=== PATIENT | female | born 1960 | race Caucasian/White ===

== ENCOUNTER 2022-09-07 08:21 | Inpatient (IN) ==
[2022-09-07] MEDS ORDERED: SODIUM CHLORIDE 0.9% 500 ML IV STA (09:04)
[2022-09-07] MEDS ORDERED: ONDANSETRON INJ 2 MG/ML 2 ML VIAL IV STA (09:06)
[2022-09-07] MEDS ORDERED: NITROGLYCERIN 2% OINTMENT 30GM TUBE EXT STA (09:09)
[2022-09-07] MEDS ORDERED: ASPIRIN CHEW 324 MG PO STA (09:09)
[2022-09-07 09:26] LABS: Basophils # (auto) 0.03 K/uL (0-0.2); Basophils % (auto) 0.5 %; Eosinophils # (auto) 0.06 K/uL (0-0.50); Hematocrit (blood only) 46.1 % (37.0-47.0); Hemoglobin 15.8 g/dl (12.0-16.0); Immature Granulocytes # (auto) 0.04 K/uL (0.01-0.20); Immature Granulocytes % (auto) 0.7 %; Lymphocytes # (auto) 0.62 K/uL (1.2-3.4); Lymphocytes % (auto) 10.5 %; Mean Corpuscular Hemoglobin 29.6 pg (25.0-34.0); Mean Corpuscular Hgb Conc 34.3 g/dL (32.0-36.0); Mean Corpuscular Volume 86.3 fL (80.0-100.0); Mean Platelet Volume 9.7 fL (9.4-12.4); Monocytes # (auto) 0.26 K/uL (0.11-0.59); Monocytes % (auto) 4.4 %; Neutrophils # (auto) 4.89 K/uL (1.40-6.50); Neutrophils % (auto) 82.9 %; Platelet Count 289 K/uL (130-400); RDW Standard Deviation 40.5 fL (36.4-46.3); Red Blood Count 5.34 M/uL (4.20-5.40)
--- NOTE | 2022-09-07 09:29 | Emergency Department Note ---
Impression & Plan Near syncope, Abnormal ECG, Nausea, Indigestion, Elevated troponin ED Provider Note INFORMANT: Patient ED PROVIDER(S): Preet Wagner MD CHIEF COMPLAINT: Near syncope PLAN: Disposition: Admitted Condition: Good Outpatient prescription management: none Referral: none MEDICAL DECISION MAKING: Patient presented emergency department because of feeling lightheaded. Her preh ospital ECG was concerning as there was some ST depression. It was improved in the ED ECG. The patient had a work-up performed. She had an unremarkable CBC and chemistry panel except for mild hypokalemia. This was treated. The patient was hydrated. She did have frequent PVCs on cardiac monitoring. Patient's D- dimer is negative. Patient's troponin unfortunately came back elevated and this was concerning for possible cardiac source. Patient was moderately hypertensive. She was treated with aspirin and nitro. She still had mild tachycardia noted and was given dose of IV Lopressor. Further management in the hospital will be necessary. Consultation was made with the [facility] list service. I discussed the case with Viridiana mckay BARK TANNER. Patient was evaluated in the ED by the team and will be admitted under Dr. Ramirez. After review of the information above and other included data, I feel the patient requires admission.. Triage Nursing notes reviewed and agree them. Vital Signs: reviewed and remarkable for hypertension and mild tachycardia Prior /Outside records reviewed: none Differential diagnosis: Vasovagal event, dehydration, infection, hypoglycemia, electrolyte abnormalities, cardiac sources, intracerebral event, pulmonary embolism, se izure, toxicologic, neurologic, as well as other pathologies. Diagnostics, as interpreted by me: ECG: Twelve-lead ECG reveals sinus tachycardia [address] abnor mality. When compared to prehospital ECG today anterior and inferior ST abnormality has replaced ST depression. Cardiac Monitoring: Cardiac monitoring ordered by me: The patient was placed on continuous cardiac monitoring and observed. It revealed a sinus tachycardic rhythm at 113 bpm with frequent PVCs. Medical decision rules: none Imaging studies: Chest x-ray. Findings: A chest x-ray was performed and revealed no pneumothorax, effusion, infiltrate, pulmonary edema, free air under the diaphragm, or wide mediastinum. Impression: No acute disease. HPI: The patient is a 62year old female who presents to the Emergency Room with complaints of near syncope. This started this morning while driving to work and is intermittent. The patient also notes the following associated symptoms, palpitations, indigestion, nausea. The patient has been given no medication fo r relieving factors. Current pain is rated as 0/10. Patient states that she felt like she was lightheaded and might pass out. She has had waves of this. She noted indigestion and some nausea. No issues over the weekend. Patient does drive a lot for work. Denies any calf pain or swelling. Pt denies LOC, headache, fevers, chills, diaphoresis, visual changes, neck pain, chest pain, breathing difficulties, vomiting, abdominal pain, back pain, melena, hematochezia, urinary symptoms, numbness, weakness, or other complaints. PAST MEDICAL HISTORY: See Below, UTI, hypertension PAST SURGICAL HISTORY: See Below, SOCIAL HISTORY: See Below, HOME MEDICATIONS: See Below ALLERGIES: See Below VITALS: See Below PHYSICAL EXAMINATION: GENERAL: Awake, alert, mildly anxious-appearing, in no distress HENT: Normocephalic, atraumatic. Oropharynx unremarkable. EYES: Normal conjunctiva. Sclera non-icteric. NECK: Inspection normal. Non-tender. Supple. No nuchal rigidity. FROM. No masses. RESPIRATORY: Clear to auscultation. No wheezes. No rales. Normal respiratory effort. CARDIAC: Borderline tachycardic rate. Normal rhythm but occasional PVCs. No murmurs. No rubs. Extremities warm and well perfused. Pulses equal. No JVD. GI: Soft, non-distended. No tenderness to palpation. No rebound or guarding. No masses. RECTAL: Deferred. MUSCULOSKELETAL: Atraumatic. Chest examination reveals no tenderness. The back is symmetrical on inspection without obvious abnormality. There is no CVA tenderness to palpation. No joint edema. LOWER EXTREMITIES: Calves are equal size bilaterally and non-tender. No edema. No discoloration. NEURO: Normal sensorium. No sensory or motor deficits noted. SKIN: No rash or jaundice noted. Past Med/Surg History Medical History GERD (gastroesophageal reflux disease) HTN (hypertension) Hypothyroidism Multiple kidney stones PUD (peptic ulcer disease) Surgical History H/O foot surgery H/O tubal ligation H/O: hysterectomy History of cystoscopy [place] teeth removed Family History Son Hypertension Bilateral kidney stones Cancer colon Mother Hypertension Cancer ovarian, colon Grandmother (Maternal) Hypertension Aunt Bilateral kidney stones Cancer colon Uncle Cancer bladder Social History Smoking Status: Never smoker Hx Alcohol Use: Yes Alcohol type: wine Hx Substance Use: No Preferred Language: [place] Technical Business Systems Analyst Required: No Beliefs That Will Affect Care: Baptism marital status: Current Living Situation: Spouse current occupational status: employed Other Information That Helps Us Care for You: No Feels Safe at Home: Yes Safety Concerns: Feels Safe At This Time Assistive Devices: Glasses Allergies Allergies Allergy/AdvReac Type Severity Reaction Status Date / Time codeine Allergy Unknown "muscle Verified 04/12/19 11:58 pain" morphine Allergy Unknown "muscle Verified 04/12/19 11:58 pain" Sulfa (Sulfonamide Allergy Unknown HIVES Verified 04/12/19 11:58 Antibiotics) hydrocodone Allergy itchy Verified 04/12/19 11:58 throat & skin gluten AdvReac Gastrointestinal Verified 09/07/22 12:37 Upset hydrochlorothiazide AdvReac Confusion Verified 09/07/22 12:36 Home Meds Home Medications Medication Instructions Recorded Confirmed amlodipine 5 mg tablet 5 mg PO DAILY 04/12/19 09/07/22 famotidine 10 mg tablet (Acid 10 mg PO HS 04/12/19 09/07/22 [employer] Plant Construction Worker (famotidine)) levothyroxine 25 mcg tablet 25 mcg PO DAILY 04/12/19 09/07/22 (Synthroid) losartan 25 mg tablet 25 mg PO DAILY 04/12/19 09/07/22 vitamin B complex (B 1 tab PO DAILY 04/12/19 09/07/22 Complex-Vitamin B12 tablet) cholecalciferol (vit D3) 1,000 2 tab PO DAILY 09/07/22 09/07/22 unit-vitamin K2 (MK4) 100 mcg tablet lactobacillus comb no.10 20 20,000 mmu cells PO DAILY 09/07/22 09/07/22 billion cell capsule (Probiotic) turmeric root extract 500 mg tablet 500 mg PO DAILY 09/07/22 09/07/22 Results & Data (ED) Vital Signs Vital Signs - 24 hr 09/07/22 08:30 09/07/22 09:04 09/07/22 08:33 Temperature 37.1 C Temperature Source Oral Pulse Rate 114 H 108 H Pulse Rate [Apical] Respiratory Rate 21 23 Respiratory Effort / Characteristics Non-Labored Respiratory Depth Normal Respiratory Pattern Regular Blood Pressure 158/104 H Blood Pressure [Left Arm] Blood Pressure Mean 122 Blood Pressure Mean [Left Arm] Blood Pressure Position Semi-fowlers Pulse Oximetry 97 97 Oxygen Delivery Method Room Air Room Air Sepsis Recent Fever Within 48 Hours No Sepsis New/Unexplained Change in Mental Status N/A Sepsis Action Taken by Nursing No Action Required 09/07/22 09:00 09/07/22 09:00 09/07/22 09:09 Temperature Temperature Source Pulse Rate 115 H 110 H Pulse Rate [Apical] Respiratory Rate 21 19 Respiratory Effort / Characteristics Respiratory Depth Respiratory Pattern Blood Pressure 143/102 H Blood Pressure [Left Arm] Blood Pressure Mean 115 Blood Pressure Mean [Left Arm] Blood Pressure Position Pulse Oximetry Oxygen Delivery Method Sepsis Recent Fever Within 48 Hours Sepsis New/Unexplained Change in Mental Status Sepsis Action Taken by Nursing 09/07/22 09:09 09/07/22 09:57 09/07/22 10:00 Temperature Temperature Source Pulse Rate 112 H Pulse Rate [Apical] Respiratory Rate 15 Respiratory Effort / Characteristics Respiratory Depth Respiratory Pattern Blood Pressure 179/112 H 137/100 Blood Pressure [Left Arm] Blood Pressure Mean 134 112 Blood Pressure Mean [Left Arm] Blood Pressure Position Pulse Oximetry Oxygen Delivery Method Sepsis Recent Fever Within 48 Hours Sepsis New/Unexplained Change in Mental Status Sepsis Action Taken by Nursing 09/07/22 10:00 09/07/22 11:00 09/07/22 11:30 Temperature Temperature Source Pulse Rate 119 H Pulse Rate [Apical] 102 H 85 Respiratory Rate 16 21 18 Respiratory Effort / Characteristics Respiratory Depth Respiratory Pattern Blood Pressure Blood Pressure [Left Arm] 152/87 H 113/79 Blood Pressure Mean Blood Pressure Mean [Left Arm] 108 90 Blood Pressure Position Pulse Oximetry 96 Oxygen Delivery Method Room Air Room Air Sepsis Recent Fever Within 48 Hours Sepsis New/Unexplained Change in Mental Status Sepsis Action Taken by Nursing Laboratory Data 09/07/22 08:50 09/07/22 08:50 Lab Results 09/07/22 09/07/22 09/07/22 Range/Units 08:50 08:50 08:50 WBC 5.90 (4.8-10.8) K/ul RBC 5.34 (4.20-5.40) M/uL Hgb 15.8 (12.0-16.0) g/dl Hct 46.1 (37.0-47.0) % MCV 86.3 (80.0-100.0) fL MCH 29.6 (25.0-34.0) pg MCHC 34.3 (32.0-36.0) g/dL RDW Std Deviation 40.5 (36.4-46.3) fL RDW Coeff of Shawna 13.0 (11.5-14.5) % Plt Count 289 (130-400) K/uL MPV 9.7 (9.4-12.4) fL Immature Gran % (Auto) 0.7 % Neut % (Auto) 82.9 % Lymph % (Auto) 10.5 % [place] % (Auto) 4.4 % Eos % (Auto) 1.0 % Baso % (Auto) 0.5 % Neut # (Auto) 4.89 (1.40-6.50) K/uL Lymph # (Auto) 0.62 L (1.2-3.4) K/uL [place] # (Auto) 0.26 (0.11-0.59) K/uL Eos # (Auto) 0.06 (0-0.50) K/uL Baso # (Auto) 0.03 (0-0.2) K/uL Immature Gran # (Auto) 0.04 (0.01-0.20) K/uL D-Dimer 230 (0-500) ug/L FEU Sodium 140 (136-145) mmol/L Potassium 3.1 L (3.5-5.1) mmol/L Chloride 103 (98-107) mmol/L Carbon Dioxide 26 (21-32) mmol/L Anion Gap 11 (3-11) BUN 19 (6-23) mg/dl Creatinine 1.00 (0.6-1.2) mg/dl Est Cr Clr Drug Dosing 63.0 ml/min Est GFR ( Amer) 69.4 ml/min Est GFR (Non-Af Amer) 59.9 ml/min BUN/Creatinine Ratio 19.0 (10-20) Glucose 148 H (70-99(Fasting)) mg/dl Calcium 10.1 (8.5-10.1) mg/dl Magnesium 1.9 (1.7-2.4) mg/dl Total Bilirubin 1.2 H (0.2-1.0) mg/dl AST 20 (13-39) U/L ALT 17 (7-52) U/L Alkaline Phosphatase 89 (34-104) U/L Troponin I High Sens 25.5 H (0-14) pg/ml Total Protein 7.9 (6.0-8.3) gm/dl Albumin 4.7 (3.4-5.0) gm/dl Globulin 3.2 (2.5-4.0) gm/dl Albumin/Globulin Ratio 1.5 (0.9-2) TSH (0.300-4.500) uIu/ml Urine Color Urine Appearance (Clear) Urine pH (4.5-7.5) Ur Specific [place] (1.000-1.030) Urine Protein (Negative) Urine Glucose (UA) (Negative) Urine Ketones (Negative) Urine Blood (Negative) Urine Nitrite (Negative) Urine Bilirubin (Negative) Urine Urobilinogen (Negative) Ur Leukocyte Esterase (Negative) Urine WBC (Auto) (0-5) /hpf Urine RBC (Auto) (0-4) /hpf U Hyaline Cast (Auto) (0-5) /lpf U Epithel Cells (Auto) (0-5) /lpf Urine Bacteria (Auto) (Negative) Lyme Disease IgG Ab (Negative) Lyme Disease IgM Ab (Negative) SARS-CoV-2, RNA, NAAT (NEGATIVE) 09/07/22 09/07/22 09/07/22 Range/Units 08:50 08:50 08:50 WBC (4.8-10.8) K/ul RBC (4.20-5.40) M/uL Hgb (12.0-16.0) g/dl Hct (37.0-47.0) % MCV (80.0-100.0) fL MCH (25.0-34.0) pg MCHC (32.0-36.0) g/dL RDW Std Deviation (36.4-46.3) fL RDW Coeff of Shawna (11.5-14.5) % Plt Count (130-400) K/uL MPV (9.4-12.4) fL Immature Gran % (Auto) % Neut % (Auto) % Lymph % (Auto) % [place] % (Auto) % Eos % (Auto) % Baso % (Auto) % Neut # (Auto) (1.40-6.50) K/uL Lymph # (Auto) (1.2-3.4) K/uL [place] # (Auto) (0.11-0.59) K/uL Eos # (Auto) (0-0.50) K/uL Baso # (Auto) (0-0.2) K/uL Immature Gran # (Auto) (0.01-0.20) K/uL D-Dimer (0-500) ug/L FEU Sodium (136-145) mmol/L Potassium (3.5-5.1) mmol/L Chloride (98-107) mmol/L Carbon Dioxide (21-32) mmol/L Anion Gap (3-11) BUN (6-23) mg/dl Creatinine (0.6-1.2) mg/dl Est Cr Clr Drug Dosing ml/min Est GFR ( Amer) ml/min Est GFR (Non-Af Amer) ml/min BUN/Creatinine Ratio (10-20) Glucose (70-99(Fasting)) mg/dl Calcium (8.5-10.1) mg/dl Magnesium (1.7-2.4) mg/dl Total Bilirubin (0.2-1.0) mg/dl AST (13-39) U/L ALT (7-52) U/L Alkaline Phosphatase (34-104) U/L Troponin I High Sens (0-14) pg/ml Total Protein (6.0-8.3) gm/dl Albumin (3.4-5.0) gm/dl Globulin (2.5-4.0) gm/dl Albumin/Globulin Ratio (0.9-2) TSH 2.883 (0.300-4.500) uIu/ml Urine Color Yellow Urine Appearance Clear (Clear) Urine pH 8.0 H (4.5-7.5) Ur Specific [place] 1.008 (1.000-1.030) Urine Protein Trace H (Negative) Urine Glucose (UA) Negative (Negative) Urine Ketones Negative (Negative) Urine Blood 1+ H (Negative) Urine Nitrite Negative (Negative) Urine Bilirubin Negative (Negative) Urine Urobilinogen Negative (Negative) Ur Leukocyte Esterase Negative (Negative) Urine WBC (Auto) 1-5 (0-5) /hpf Urine RBC (Auto) 5-10 H (0-4) /hpf U Hyaline Cast (Auto) 1-5 (0-5) /lpf U Epithel Cells (Auto) 0-5 (0-5) /lpf Urine Bacteria (Auto) Negative (Negative) Lyme Disease IgG Ab Negative (Negative) Lyme Disease IgM Ab Negative (Negative) SARS-CoV-2, RNA, NAAT (NEGATIVE) 09/07/22 Range/Units 09:20 WBC (4.8-10.8) K/ul RBC (4.20-5.40) M/uL Hgb (12.0-16.0) g/dl Hct (37.0-47.0) % MCV (80.0-100.0) fL MCH (25.0-34.0) pg MCHC (32.0-36.0) g/dL RDW Std Deviation (36.4-46.3) fL RDW Coeff of Shawna (11.5-14.5) % Plt Count (130-400) K/uL MPV (9.4-12.4) fL Immature Gran % (Auto) % Neut % (Auto) % Lymph % (Auto) % [place] % (Auto) % Eos % (Auto) % Baso % (Auto) % Neut # (Auto) (1.40-6.50) K/uL Lymph # (Auto) (1.2-3.4) K/uL [place] # (Auto) (0.11-0.59) K/uL Eos # (Auto) (0-0.50) K/uL Baso # (Auto) (0-0.2) K/uL Immature Gran # (Auto) (0.01-0.20) K/uL D-Dimer (0-500) ug/L FEU Sodium (136-145) mmol/L Potassium (3.5-5.1) mmol/L Chloride (98-107) mmol/L Carbon Dioxide (21-32) mmol/L Anion Gap (3-11) BUN (6-23) mg/dl Creatinine (0.6-1.2) mg/dl Est Cr Clr Drug Dosing ml/min Est GFR ( Amer) ml/min Est GFR (Non-Af Amer) ml/min BUN/Creatinine Ratio (10-20) Glucose (70-99(Fasting)) mg/dl Calcium (8.5-10.1) mg/dl Magnesium (1.7-2.4) mg/dl Total Bilirubin (0.2-1.0) mg/dl AST (13-39) U/L ALT (7-52) U/L Alkaline Phosphatase (34-104) U/L Troponin I High Sens (0-14) pg/ml Total Protein (6.0-8.3) gm/dl Albumin (3.4-5.0) gm/dl Globulin (2.5-4.0) gm/dl Albumin/Globulin Ratio (0.9-2) TSH (0.300-4.500) uIu/ml Urine Color Urine Appearance (Clear) Urine pH (4.5-7.5) Ur Specific [place] (1.000-1.030) Urine Protein (Negative) Urine Glucose (UA) (Negative) Urine Ketones (Negative) Urine Blood (Negative) Urine Nitrite (Negative) Urine Bilirubin (Negative) Urine Urobilinogen (Negative) Ur Leukocyte Esterase (Negative) Urine WBC (Auto) (0-5) /hpf Urine RBC (Auto) (0-4) /hpf U Hyaline Cast (Auto) (0-5) /lpf U Epithel Cells (Auto) (0-5) /lpf Urine Bacteria (Auto) (Negative) Lyme Disease IgG Ab (Negative) Lyme Disease IgM Ab (Negative) SARS-CoV-2, RNA, NAAT NEGATIVE (NEGATIVE) Administered Medications Heparin Sodium/Dextrose (Heparin Sodium/Dextrose) 25,000 units in 500 mls @ 25 mls/hr IV .Q20H [facility]; Protocol Stop: 10/07/22 13:59 Last Admin: 09/07/22 14:07 Dose: 1,250 units/hr, 25 mls/hr Documented By: CECILE Co-signed By: MARY Metoprolol Tartrate (Metoprolol Tartrate 25 Mg Tab) 12.5 mg PO BID [facility] Stop: 10/07/22 13:24 Last Admin: 09/07/22 13:40 Dose: 12.5 mg Documented By: CECILE Discontinued Medications Aspirin (Aspirin Chew 324 Mg) 324 mg PO NOW STA Stop: 09/07/22 09:10 Last Admin: 09/07/22 09:35 Dose: 324 mg Documented By: CALOS Heparin Sodium (Porcine) (Heparin Sod (Porcine) 1000 Unit/Ml) 6,000 units IV NOW ONE Stop: 09/07/22 13:55 Last Admin: 09/07/22 14:05 Dose: 6,000 units Documented By: CECILE Co-signed By: MARY Sodium Chloride (Nss) 500 mls @ 999 mls/hr IV .Q31M STA Stop: 09/07/22 09:34 Last Infusion: 09/07/22 09:35 Dose: 0 mls/hr Documented By: Admin: 09/07/22 09:00 Dose: 999 mls/hr Documented By: CALOS Metoprolol Tartrate (Metoprolol Tartrate 1 Mg/Ml Vial) 5 mg IV NOW STA Stop: 09/07/22 11:03 Last Admin: 09/07/22 11:11 Dose: 5 mg Documented By: CECILE Nitroglycerin (Nitroglycerin 2% Ointment 30gm Tube) 0.5 inch EXT NOW STA Stop: 09/07/22 09:10 Last Admin: 09/07/22 09:35 Dose: 0.5 inch Documented By: CALOS Ondansetron HCl (Ondansetron Inj 2 Mg/Ml 2 Ml Vial) 4 mg IV NOW STA Stop: 09/07/22 09:07 Last Admin: 09/07/22 09:34 Dose: 4 mg Documented By: CALOS Potassium Chloride (Potassium Chloride Crtab 20 Meq Tabcr) 20 meq PO NOW STA Stop: 09/07/22 09:55 Last Admin: 09/07/22 10:41 Dose: 20 meq Documented By: CALOS Potassium Chloride (Potassium Chloride Crtab 20 Meq Tabcr) 20 meq PO NOW STA Stop: 09/07/22 12:37 Last Admin: 09/07/22 12:46 Dose: 20 meq Documented By: CALOS Imaging Data Radiologist's Impression: Chest X-Ray 09/07/22 09:04 XR chest 1V portable HISTORY: 62 years-old Female near syncope acute chest trauma COMPARISON: 03/15/2019 TECHNIQUE: AP view of the chest FINDINGS: Cardiomediastinal and hilar silhouettes are within normal limits. No pneumothorax, pleural effusion, airspace consolidation or overt pulmonary edema. Bones appear grossly intact. IMPRESSION: No acute process. ACT 112: Negative or not required by law. The above report was generated using voice recognition software. It may contain grammatical, syntax or spelling errors. Electronically signed by: Hank Solorio M.D. 09/07/2022 9:39 AM Discharge Plan Visit Data Chief Complaint: Syncope (Near Syncope) Stated Complaint: NEAR SYNCOPE, DIZZINESS ED Provider: Preet Wagner Discharge Problem: Near syncope, Abnormal ECG, Nausea, Indigestion, Elevated troponin Discharge Instructions Interventions: ED Discharge Assessment Last Done: 09/07/22 14:34
[2022-09-07 09:32] LABS: Appearance Urine Clear (Clear); Bacteria Urine Automated Negative (Negative); Bilirubin Urine Negative (Negative); Blood Urine 1+ (Negative); Color Urine Yellow; Epithelial Cell Urine Auto 0-5 /lpf (0-5); Glucose Urine UA Negative (Negative); Ketones Urine Negative (Negative); Leukocyte Esterase Urine Negative (Negative); Nitrite Urine Negative (Negative); Specific Gravity Urine 1.008 (1.000-1.030); Urobilinogen Urine Negative (Negative)
[2022-09-07 09:35] LABS: Protein Urine Trace (Negative)
[2022-09-07 09:40] LABS: D Dimer 230 ug/L FEU (0-500)
[2022-09-07 09:41] LABS: Albumin Level 4.7 gm/dl (3.4-5.0); Bilirubin,Total 1.2 mg/dl (0.2-1.0); Calcium 10.1 mg/dl (8.5-10.1); Magnesium 1.9 mg/dl (1.7-2.4); Potassium 3.1 mmol/L (3.5-5.1)
--- NOTE | 2022-09-07 09:42 | XRay Report ---
XR chest 1V portable HISTORY: 62 years-old Female near syncope acute chest trauma COMPARISON: 03/15/2019 TECHNIQUE: AP view of the chest FINDINGS: Cardiomediastinal and hilar silhouettes are within normal limits. No pneumothorax, pleural effusion, airspace consolidation or overt pulmonary edema. Bones appear grossly intact. IMPRESSION: No acute process. ACT 112: Negative or not required by law. The above report was generated using voice recognition software. It may contain grammatical, syntax o r spelling errors. Electronically signed by: Hank Solorio M.D. 09/07/2022 9:39 AM
[2022-09-07 09:47] LABS: Albumin Globulin Ratio 1.5 (0.9-2); Est GFR (African American) 69.4 ml/min; Est GFR (Non-African American) 59.9 ml/min; Globulin 3.2 gm/dl (2.5-4.0); Total Protein 7.9 gm/dl (6.0-8.3)
[2022-09-07] MEDS ORDERED: POTASSIUM CHLORIDE CRTAB 20 MEQ TABCR PO STA ×2 (09:54→12:36)
[2022-09-07 09:58] LABS: Lyme Ab IgG w/WB Rflx Negative (Negative); Lyme Ab IgM w/WB Rflx Negative (Negative)
--- NOTE | 2022-09-07 10:09 | Electrocardiogram Report ---
Test Reason : Blood Pressure : / mmHG Vent. Rate : 107 BPM Atrial Rate : 107 BPM P-R Int : 158 ms QRS Dur : 084 ms QT Int : 346 ms P-R-T Axes : 052 -12 024 degrees QTc Int : 461 ms Sinus tachycardia Nonspecific ST abnormality Abnormal ECG No previous ECGs available Confirmed by Amish Worrell ([id number]) on 09/07/2022 10:09:04 AM Referred By: REFERRED SELF Confirmed By:Amish Worrell
[2022-09-07 10:13] LABS: Troponin I High Sensitivity 25.5 pg/ml (0-14)
[2022-09-07] MEDS ORDERED: METOPROLOL TARTRATE 1 MG/ML VIAL IV STA (11:02)
--- NOTE | 2022-09-07 12:40 | History & Physical Report ---
Date of Service September 07, 2022 Assessment & Plan (1) Near syncope: (2) Abnormal ECG: Plan: Admit to telemetry Patient presenting today after a near syncopal event with associated indigestion and nausea. Episode occurred while driving. Prehospital EKG showed ST d epressions in leads II, aVF, V3 through V5. EKG in ED similar with less pronounced ST depressions. Frequent PVCs noted on ED telemetry. Initial HS trop 25. K+ 3.1 Replace potassium Trend troponin S/p metoprolol 5 mg IV in the ED, continue with metoprolol tartrate 12.5 mg PO BID Resting echo Cardiology consult (3) HTN (hypertension): Plan: BP controlled, continue amlodipine and losartan. Adding metoprolol as above (4) Hypothyroidism: Plan: TSH WNL Continue with levothyroxine (5) GERD (gastroesophageal reflux disease): Plan: Continue H2 meghana DVT PROPHYLAXIS SCDs I spent a total of 60 minutes coordinating, documenting, and providing care for this patient excluding time spent in the performance of separately billed services. This included personally reviewing all current laboratories and imaging studies, medication reconciliation, outpatient chart review, and discussion with specialists. History of Present Illness Chief Complaint: Near Syncope Primary Care Provider: Cleopatra Luu MD 62 year old female with PMH HTN, GERD, PUD, hypothyroidism, renal calculi, and other problems listed below who presents to the ED for evaluation of near syncope. Patient reports that while driving this morning she had onset of indigestion and lightheadedness. Patient reports she pulled over and took a dose of Maalox. She reports that she then continued down the road for about 1 mile when symptoms returned. Patient reports she felt as though she was going to pass out. She was able to call 911. Patient reports associated nausea and palpitations. Patient denies diaphoresis and chest pain. Patient does report she gets episodes of indigestion with associated lightheadedness almost daily however today's episode was much different. Patient reports undergoing stress testing about 10 years ago. Patient is unsure of the indication. Patient states that test was stopped due to elevated BP however patient denies any additional work-up. Patient reports he otherwise has been feeling well recently. No other recent illnesses, fevers, chills. She denies vomiting, abdominal pain, diarrhea. No urinary symptoms. Prehospital EKG showed sinus tachycardia with ST depressions in leads II aVF, V3-V5. Upon arrival to the ED, patient was tachycardic in the 110's. Labs show K+ 3.1, HS troponin 25.5. EKG is similar to prehospital however ST depressions less pronounced. Patient was given full dose aspirin, metoprolol 5 mg IV, 0.5in Nitropaste, IV Zofran, potassium replacement, IVF. Allergies Allergy/AdvReac Type Severity Reaction Status Date / Time codeine Allergy Unknown "muscle Verified 04/12/19 11:58 pain" morphine Allergy Unknown "muscle Verified 04/12/19 11:58 pain" Sulfa (Sulfonamide Allergy Unknown HIVES Verified 04/12/19 11:58 Antibiotics) hydrocodone Allergy itchy Verified 04/12/19 11:58 throat & skin gluten AdvReac Gastrointestinal Verified 09/07/22 12:37 Upset hydrochlorothiazide AdvReac Confusion Verified 09/07/22 12:36 Home Medications Medication Instructions Recorded Confirmed Type amlodipine 5 mg tablet 5 mg PO DAILY 04/12/19 09/07/22 History famotidine 10 mg tablet (Acid 10 mg PO HS 04/12/19 09/07/22 History Rehabilitator (famotidine)) levothyroxine 25 mcg tablet 25 mcg PO DAILY 04/12/19 09/07/22 History (Synthroid) losartan 25 mg tablet 25 mg PO DAILY 04/12/19 09/07/22 History vitamin B complex (B 1 tab PO DAILY 04/12/19 09/07/22 History Complex-Vitamin B12 tablet) cholecalciferol (vit D3) 1,000 2 tab PO DAILY 09/07/22 09/07/22 History unit-vitamin K2 (MK4) 100 mcg tablet lactobacillus comb no.10 20 20,000 mmu cells PO DAILY 09/07/22 09/07/22 History billion cell capsule (Probiotic) turmeric root extract 500 mg tablet 500 mg PO DAILY 09/07/22 09/07/22 History Past Med/Surg History Medical History GERD (gastroesophageal reflux disease) HTN (hypertension) Hypothyroidism Multiple kidney stones PUD (peptic ulcer disease) Surgical History H/O foot surgery H/O tubal ligation H/O: hysterectomy History of cystoscopy [place] teeth removed Family History Son Hypertension Bilateral kidney stones Cancer colon Mother Hypertension Cancer ovarian, colon Grandmother (Maternal) Hypertension Aunt Bilateral kidney stones Cancer colon Uncle Cancer bladder Social History Smoking Status: Never smoker Hx Alcohol Use: Yes Alcohol type: wine Hx Substance Use: No Preferred Language: Irish Customer Engineer Required: No Beliefs That Will Affect Care: Denominational marital status: Current Living Situation: Spouse current occupational status: employed Other Information That Helps Us Care for You: No Feels Safe at Home: Yes Safety Concerns: Feels Safe At This Time Assistive Devices: Glasses Review of Systems Review of Systems: ROS per HPI, all other systems reviewed and negative Physical Exam Constitutional: WD/WN, vitals as above Eyes: PERRL, conjunctivae normal, anicteric sclerae ENMT: external ear and nose normal, oropharynx normal Respiratory: normal respiratory effort, lungs clear to auscultation Cardiovascular: Rate/Rhythm: regular rate and regular rhythm Vessels: normal peripheral pulses Extremities: no edema Gastrointestinal (Abdomen): normal bowel sounds, soft, nontender, no hepatosplenomegaly Musculoskeletal: no cyanosis or clubbing, extremities motor strength 5/5 Skin: no rashes, warm and dry Neurologic: PERRL, EOMI, accommodation nl, no face palsy, no dysarthria Psychiatric: A+Ox3, euthymic affect Results & Data Results & Data ([facility]) Vital Signs (Past 12 Hours) Vital Signs Temp Pulse Pulse Resp BP BP Pulse Ox 09/07/22 12:30 87 15 97 09/07/22 12:30 130/84 09/07/22 12:00 87 17 97 09/07/22 12:00 140/82 09/07/22 11:30 85 18 113/79 96 09/07/22 11:00 102 H 21 152/87 H 09/07/22 10:00 119 H 16 09/07/22 10:00 137/100 09/07/22 09:57 112 H 15 09/07/22 09:09 179/112 H 09/07/22 09:09 110 H 19 09/07/22 09:00 115 H 21 01/30/23 09:00 143/102 H 09/07/22 08:33 108 H 23 09/07/22 09:04 97 09/07/22 08:30 37.1 C 114 H 21 158/104 H 97 O2 Del Method 09/07/22 12:30 Room Air 09/07/22 12:30 09/07/22 12:00 Room Air 09/07/22 12:00 09/07/22 11:30 Room Air 09/07/22 11:00 Room Air 09/07/22 10:00 09/07/22 10:00 09/07/22 09:57 09/07/22 09:09 09/07/22 09:09 09/07/22 09:00 09/07/22 09:00 09/07/22 08:33 09/07/22 09:04 Room Air 09/07/22 08:30 Room Air Laboratory Results Short CBC 09/07/22 Range/Units 08:50 WBC 5.90 (4.8-10.8) K/ul Hgb 15.8 (12.0-16.0) g/dl Hct 46.1 (37.0-47.0) % Plt Count 289 (130-400) K/uL BMP 09/07/22 08:50 Sodium 140 Potassium 3.1 L Chloride 103 Carbon Dioxide 26 BUN 19 Creatinine 1.00 Glucose 148 H Calcium 10.1 Liver Function 09/07/22 Range/Units 08:50 Total Bilirubin 1.2 H (0.2-1.0) mg/dl AST 20 (13-39) U/L ALT 17 (7-52) U/L Alkaline Phosphatase 89 (34-104) U/L Albumin 4.7 (3.4-5.0) gm/dl Urine 09/07/22 Range/Units 08:50 Urine Color Yellow Urine Appearance Clear (Clear) Urine pH 8.0 H (4.5-7.5) Ur Specific [place] 1.008 (1.000-1.030) Urine Protein Trace H (Negative) Urine Glucose (UA) Negative (Negative) Diagnostic Findings Chest X-Ray 09/07/22 09:04 XR chest 1V portable HISTORY: 62 years-old Female near syncope acute chest trauma COMPARISON: 03/15/2019 TECHNIQUE: AP view of the chest FINDINGS: Cardiomediastinal and hilar silhouettes are within normal limits. No pneumothorax, pleural effusion, airspace consolidation or overt pulmonary edema. Bones appear grossly intact. IMPRESSION: No acute process. ACT 112: Negative or not required by law. The above report was generated using voice recognition software. It may contain grammatical, syntax or spelling errors. Electronically signed by: Hank Solorio M.D. 09/07/2022 9:39 AM Supervising Physician Co-Signing Physician Notes Patient was seen and evaluated in ER room A11B. Chart reviewed. Case discussed with BECK. Second troponin increasing, discussed with Cardiology, will start heparin drip. Keep NPO past midnight. Likely cath tomorrow. Remaining assessment and plan as above.
--- NOTE | 2022-09-07 12:45 | Cardiology Consultation ---
Date of Consultation September 07, 2022 Assessment & Plan (1) Abnormal ECG: (2) Near syncope: (3) Elevated troponin: (4) PVCs (premature ventricular contractions): (5) HTN (hypertension): Plan 62-year-old female presenting to the emergency department via EMS today due to an episode of near syncope while driving. Symptoms were accompanied by palpitations, dyspepsia, and numbness and tingling in her upper extremities. EKG sinus rhythm with a nonspecific repolarization abnormality. Telemetry showing sinus rhythm/sinus tach with PVCs. Patient had significant improvement in symptoms since receiving Lopressor. -Patient symptomatic with PVCs. Responded well to IV Lopressor. Start metoprolol tartrate 12.5 mg twice daily. Continue to monitor on telemetry while inpatient. -Hypokalemia noted on BMP. Replace potassium to a goal of 4.0 High-sensitivity troponin elevated at 25>>65. -Obtain resting echocardiogram to assess LV systolic function and for any new wall motion abnormalities. We will also be able to take a look at valvular status at this time. Order already placed by primary team. Results pending. -Start ASA 81 mg daily -Start Heparin gtt -NPO at midnight for possible heart cath tomorrow morning. History of hypertension. Blood pressures controlled. -Continue home blood pressure medicines of losartan and amlodipine. Case discussed with Dr. Hendrix. We will follow. Supervising Physician Co-Signing Physician Notes Supervising Physician Attestation: I have personally performed a history and physical examination on the patient. I agree with the physician electrician's assistant's findings and plan as documented with the following additions. Subjective: Patient describes driving to work today and feeling symptoms typical of what she calls her chronic "heartburn". She pulled over and took some Maalox. She started driving again and shortly thereafter felt ongoing heartburn as well as arm numbness, lightheadedness, and felt like she might pass out. She pulled over and called 911. Exam: Cardiovascular: Regular rhythm, no murmurs, no edema Data: Initial twelve-lead EKG performed at 807 by the paramedics revealed sinus tachycardia at 120 bpm with [address] segment depression noted in the inferior leads, most pronounced in lead II, I, and to a lesser degree in the lateral precordial leads. This was less prominent on a repeat tracing performed 10 minutes later 8:17 AM. By the time she arrived and had a standard twelve- lead EKG performed in the emergency department only mild nonspecific repolarization changes were noted. Laboratory studies notable for potassium of 3.1, initial HS troponin 25.5, and has trended up to 64.2. A bedside echocardiogram was performed with images interpreted independently by the undersigned revealing normal biventricular wall motion and systolic function, LVEF in the range of 60-65 percent. Trace mitral regurgitation noted. Assessment and Plan: At the time my assessment the patient was asymptomatic, subjective symptoms actually improved after receiving IV metoprolol and oral metoprolol. -Question if her gastrointestinal symptoms today are an anginal equivalent. -Based on the EKG and troponin values, will likely plan for coronary angiography tomorrow 09/08/2022. -Continue medical therapy including aspirin, metoprolol tartrate 12.5 mg twice daily, UF heparin. -Bilirubin minimally elevated at 1.2, transaminases normal. Start atorvastatin 20 mg daily. -Advance diet now, n.p.o. after midnight, further testing planned tomorrow. DVT prophylaxis: She is on full anticoagulation dose heparin infusion. Taiwo Hendrix, History of Present Illness Reason for Consultation: Near syncope, abnormal EKG, elevated troponin Requesting Physician: Shamika mcfarland History of Present Illness 62-year-old female who presented to the [facility] emergency department due to symptoms of presyncope while driving this morning. This morning when she was driving to work she started to develop dyspepsia/GERD- like symptoms which are not uncommon for her. States that she has a "nodule" at the bottom of her esophagus and takes anti-reflux medications often. When she pulled over to take some Maalox she started to feel extremely lightheaded. Symptoms progressed and she started to feel numbness and tingling in her hands. She developed tunnel vision which is what prompted her to call 911. She denies any loss of consciousness. Since coming to the ED she has been feeling a lot of palpitations/skipped heart beats. She was given 5 mg IV Lopressor, ASA 325 mg, and Topical Nitro with relief in her symptoms. Notes that a similar occurrence happened around - but was not nearly as intense. Tele: Initially ST with PVCs 100s, now SR with PVCs in the 80s. EKG: Sinus tachycardia, [address] abnormality. Labs: CBC unremarkable, renal function stable, hypokalemia- 3.1, high- sensitivity troponin- 25.5 Chest x-ray unremarkable Echo pending Upon entrance into the room patient resting in bed. Daughter at beside. Denies chest pain. No further GI discomfort/nausea, lightheadedness, or presyncope. Will continue to have palpitations- but improved. Appetite good. No personal history of [place], CVA, rheumatic fever. Patient is new to the [facility] practice. She follows with a care team in [place]. Family History: Mother: [place] following colon cancer/ovarian cancer surgery, in her 60s Father: unknown Brother: Uncontrolled HTN, cerebral aneurysm- Son: ? [place] at age 25, HFrEF, 2 year ago due to colon cancer Past medical history: Hypertension GERD Peptic ulcer disease Hypothyroidism Renal calculi Allergies Allergy/AdvReac Type Severity Reaction Status Date / Time codeine Allergy Unknown "muscle Verified 04/12/19 11:58 pain" morphine Allergy Unknown "muscle Verified 04/12/19 11:58 pain" Sulfa (Sulfonamide Allergy Unknown HIVES Verified 04/12/19 11:58 Antibiotics) hydrocodone Allergy itchy Verified 04/12/19 11:58 throat & skin gluten AdvReac Gastrointestinal Verified 09/07/22 12:37 Upset hydrochlorothiazide AdvReac Confusion Verified 09/07/22 12:36 Home Medications Medication Instructions Recorded Confirmed Type amlodipine 5 mg tablet 5 mg PO DAILY 04/12/19 09/07/22 History famotidine 10 mg tablet (Acid 10 mg PO HS 04/12/19 09/07/22 History Academic Assistant (famotidine)) levothyroxine 25 mcg tablet 25 mcg PO DAILY 04/12/19 09/07/22 History (Synthroid) losartan 25 mg tablet 25 mg PO DAILY 04/12/19 09/07/22 History vitamin B complex (B 1 tab PO DAILY 04/12/19 09/07/22 History Complex-Vitamin B12 tablet) cholecalciferol (vit D3) 1,000 2 tab PO DAILY 09/07/22 09/07/22 History unit-vitamin K2 (MK4) 100 mcg tablet lactobacillus comb no.10 20 20,000 mmu cells PO DAILY 09/07/22 09/07/22 History billion cell capsule (Probiotic) turmeric root extract 500 mg tablet 500 mg PO DAILY 09/07/22 09/07/22 History Patient History Medical History GERD (gastroesophageal reflux disease) HTN (hypertension) Hypothyroidism Multiple kidney stones PUD (peptic ulcer disease) Surgical History H/O foot surgery H/O tubal ligation H/O: hysterectomy History of cystoscopy [place] teeth removed Family History Son Hypertension Bilateral kidney stones Cancer colon Mother Hypertension Cancer ovarian, colon Grandmother (Maternal) Hypertension Aunt Bilateral kidney stones Cancer colon Uncle Cancer bladder Social History Smoking Status: Never smoker Hx Alcohol Use: Yes Alcohol type: wine Hx Substance Use: No Preferred Language: Haitian Operator Catalyst Concentration Required: No Beliefs That Will Affect Care: Hindu marital status: Current Living Situation: Spouse current occupational status: employed Other Information That Helps Us Care for You: No Feels Safe at Home: Yes Safety Concerns: Feels Safe At This Time Assistive Devices: Glasses Review of Systems Review of Systems: All systems reviewed & are unremarkable except as noted in HPI & below Physical Exam Physical Exam: Temp Pulse Resp BP Pulse Ox O2 Del Method 37.1 C 80 13 136/82 95 09/07/22 08:30 09/07/22 14:30 09/07/22 14:30 09/07/22 14:30 09/07/22 14:30 09/07/22 14:30 Constitutional: WD/WN, vitals as above no acute distress Eyes: PERRL, conjunctivae normal, anicteric sclerae Neck: normal visual inspection and trachea midline Respiratory: normal respiratory effort, lungs clear to auscultation Cardiovascular: RRR, no murmur, no edema Heart Sounds: normal S1 and normal S2 Vessels: no JVD Extremities: no edema Gastrointestinal (Abdomen): normal bowel sounds, soft, nontender, no hepatosplenomegaly Musculoskeletal: no cyanosis or clubbing, extremities motor strength 5/5 Skin: no rashes, warm and dry Psychiatric: A+Ox3, euthymic affect Results & Data ([facility]) Laboratory Results Cardiac Enzymes 09/07/22 Range/Units 08:50 AST 20 (13-39) U/L Troponin I High Sens 25.5 H (0-14) pg/ml CBC 09/07/22 Range/Units 08:50 WBC 5.90 (4.8-10.8) K/ul RBC 5.34 (4.20-5.40) M/uL Hgb 15.8 (12.0-16.0) g/dl Hct 46.1 (37.0-47.0) % Plt Count 289 (130-400) K/uL Neut # (Auto) 4.89 (1.40-6.50) K/uL Lymph # (Auto) 0.62 L (1.2-3.4) K/uL [place] # (Auto) 0.26 (0.11-0.59) K/uL Eos # (Auto) 0.06 (0-0.50) K/uL Baso # (Auto) 0.03 (0-0.2) K/uL Comprehensive Metabolic Panel 09/07/22 Range/Units 08:50 Sodium 140 (136-145) mmol/L Potassium 3.1 L (3.5-5.1) mmol/L Chloride 103 (98-107) mmol/L Carbon Dioxide 26 (21-32) mmol/L BUN 19 (6-23) mg/dl Creatinine 1.00 (0.6-1.2) mg/dl Glucose 148 H (70-99(Fasting)) mg/dl Calcium 10.1 (8.5-10.1) mg/dl AST 20 (13-39) U/L ALT 17 (7-52) U/L Alkaline Phosphatase 89 (34-104) U/L Total Protein 7.9 (6.0-8.3) gm/dl Albumin 4.7 (3.4-5.0) gm/dl
[2022-09-07] MEDS: METOPROLOL TARTRATE 25 MG TAB PO SCH ×2 (13:40→21:16)
[2022-09-07] MEDS ORDERED: Heparin IV Adult Wt-Based Standard WITH Bolus Protocol IV SCH (13:45)
[2022-09-07] MEDS ORDERED: HEPARIN SOD (PORCINE) 1000 UNIT/ML IV ONE (13:54)
[2022-09-07] MEDS ORDERED: HEPARIN SODIUM/DEXTROSE 25,000 UNITS/500 ML BAG IV SCH (14:00)
[2022-09-07] MEDS ORDERED: ACETAMINOPHEN 325 MG TAB PO PRN (14:34)
[2022-09-07] MEDS ORDERED: METOPROLOL TARTRATE 25 MG TAB PO SCH (14:34)
[2022-09-07] MEDS: ATORVASTATIN 20 MG TAB PO SCH (18:02)
[2022-09-07 20:04] LABS: Partial Thromboplastin Ratio 2.7
[2022-09-07 20:12] LABS: Partial Thromboplastin Time 72.9 Seconds (21.0-31.0)
[2022-09-07] MEDS ORDERED: FAMOTIDINE 10 MG TABLET PO SCH (21:00)
[2022-09-08 03:25] LABS: Hematocrit (blood only) 38.9 % (37.0-47.0); Hemoglobin 13.3 g/dl (12.0-16.0); Mean Corpuscular Hemoglobin 29.7 pg (25.0-34.0); Mean Corpuscular Hgb Conc 34.2 g/dL (32.0-36.0); Mean Corpuscular Volume 86.8 fL (80.0-100.0); Mean Platelet Volume 9.4 fL (9.4-12.4); Platelet Count 268 K/uL (130-400); RDW Coefficient of Variation 13.2 % (11.5-14.5); RDW Standard Deviation 41.1 fL (36.4-46.3); Red Blood Count 4.48 M/uL (4.20-5.40); White Blood Count 6.85 K/ul (4.8-10.8)
[2022-09-08 03:44] LABS: BUN Creatinine Ratio 20.4 (10-20); Calcium 8.9 mg/dl (8.5-10.1); Creatinine Clr Calc Pharmacy 67.7 ml/min; Est GFR (African American) 75.8 ml/min; Est GFR (Non-African American) 65.4 ml/min; Potassium 3.8 mmol/L (3.5-5.1)
[2022-09-08 04:10] LABS: Partial Thromboplastin Ratio 2.7
[2022-09-08 04:20] LABS: Partial Thromboplastin Time 74.6 Seconds (21.0-31.0)
[2022-09-08] MEDS: LEVOTHYROXINE SODIUM 25 MCG TABLET PO SCH (06:07)
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
[2022-09-08] MEDS: ASPIRIN 81 MG ECTAB PO SCH (08:34)
[2022-09-08] MEDS: amLODIPine BESYLATE 5 MG TAB PO SCH (08:34)
[2022-09-08] MEDS: ATORVASTATIN 20 MG TAB PO SCH (08:34)
[2022-09-08] MEDS ORDERED: METOPROLOL TARTRATE 25 MG TAB PO SCH (09:00)
[2022-09-08] MEDS ORDERED: LOSARTAN POTASSIUM 25 MG TAB PO SCH (09:00)
[2022-09-08] MEDS ORDERED: MIDAZOLAM HCL 1 MG/ML 2ML VIAL ONE ×2 (09:22→10:35)
[2022-09-08] MEDS ORDERED: niCARdipine HCL INJ 2.5 MG/ML 10 ML AMP ONE (09:22)
[2022-09-08] MEDS ORDERED: fentaNYL citrate 100 MCG/2 ML VIAL ONE (09:22)
[2022-09-08] MEDS ORDERED: NITROGLYCERIN/D5W 100MCG/ML 20ML SYR ONE (09:22)
[2022-09-08] MEDS ORDERED: HEPARIN (PORCINE) 1000 UNIT/ML 10 ML (CATH LAB USE ONLY) ONE (09:22)
--- NOTE | 2022-09-08 09:57 | Pre Anesthesia Assessment ---
Date of Service September 08, 2022 Pre Sedation Assessment Vital Signs Temp Pulse Pulse Resp BP BP BP 09/08/22 09:25 69 16 161/93 H 09/08/22 03:00 97.8 F 76 15 138/87 09/07/22 23:32 57 L 09/07/22 23:00 98.4 F 63 14 108/62 09/07/22 20:00 98.4 F 71 12 116/73 09/07/22 15:57 84 23 09/07/22 15:50 144/97 H 09/07/22 15:50 84 29 H 09/07/22 15:45 135/81 09/07/22 15:35 89 24 09/07/22 15:30 85 17 09/07/22 15:30 125/74 09/07/22 15:49 89 09/07/22 15:03 09/07/22 15:03 80 18 119/81 09/07/22 14:30 80 13 09/07/22 14:30 136/82 09/07/22 14:02 90 20 09/07/22 14:01 132/94 09/07/22 13:56 94 H 09/07/22 13:30 82 15 09/07/22 13:30 136/99 09/07/22 13:00 86 20 09/07/22 13:00 133/89 09/07/22 12:30 87 15 09/07/22 12:30 130/84 09/07/22 12:00 87 17 09/07/22 12:00 140/82 09/07/22 11:30 85 18 113/79 09/07/22 11:00 102 H 21 152/87 H 09/07/22 10:00 119 H 16 09/07/22 10:00 137/100 09/07/22 09:57 112 H 15 Pulse Ox O2 Del Method O2 Del Method 09/08/22 09:25 96 Room Air 09/08/22 03:00 97 Room Air 09/07/22 23:32 09/07/22 23:00 97 Room Air 09/07/22 20:00 98 Room Air 09/07/22 15:57 98 09/07/22 15:50 09/07/22 15:50 98 09/07/22 15:45 09/07/22 15:35 09/07/22 15:30 09/07/22 15:30 09/07/22 15:49 09/07/22 15:03 Room Air 09/07/22 15:03 98 Room Air 09/07/22 14:30 95 Room Air 09/07/22 14:30 09/07/22 14:02 97 Room Air 09/07/22 14:01 09/07/22 13:56 97 Room Air 09/07/22 13:30 96 Room Air 09/07/22 13:30 09/07/22 13:00 95 09/07/22 13:00 09/07/22 12:30 97 Room Air 09/07/22 12:30 09/07/22 12:00 97 Room Air 09/07/22 12:00 09/07/22 11:30 96 Room Air 09/07/22 11:00 Room Air 09/07/22 10:00 09/07/22 10:00 09/07/22 09:57 Cardiovascular RRR, no murmur, no edema Respiratory normal respiratory effort, lungs clear to auscultation Pre-Sedation Airway Assessment Smoking Status: Never smoker Hx Sleep Apnea: No Hx Difficult Intubation: No Short, Thick Neck: No Thyromental Distance: > or= 3.5 Finger Breadths Oral Cavity: + WNL Mallampati Class: II ASA: ASA2 Procedure Planning Contraindications for Sedation: none Current Medications Reviewed: Yes Notes The planned sedation has been discussed with the patient. Informed Consent was obtained. I have identified the patient, determined the appropriateness of sedation and have assessed the patient immediately prior to the procedure. All medicine(s) and interventions are by my order.
[2022-09-08] MEDS ORDERED: CLOPIDOGREL BISULFATE 300 MG TAB ONE (10:36)
--- NOTE | 2022-09-08 11:04 | Communication Note ---
Date of Service: September 08, 2022 Given use of DAPT with PUD will start patient on Protonix 40 mg daily This can be started following her cardiac cath. -Patient with past intolerance to Protonix. We will continue Pepcid.
--- NOTE | 2022-09-08 11:08 | Post Anesthesia Assessment ---
Date of Service September 08, 2022 Post Sedation Assessment Vital Signs Temp Pulse Pulse Resp BP BP BP 09/08/22 11:00 69 16 118/77 09/08/22 09:25 69 16 161/93 H 09/08/22 03:00 97.8 F 76 15 138/87 09/07/22 23:32 57 L 09/07/22 23:00 98.4 F 63 14 108/62 09/07/22 20:00 98.4 F 71 12 116/73 09/07/22 15:57 84 23 09/07/22 15:50 144/97 H 09/07/22 15:50 84 29 H 09/07/22 15:45 135/81 09/07/22 15:35 89 24 09/07/22 15:30 85 17 09/07/22 15:30 125/74 09/07/22 15:49 89 09/07/22 15:03 09/07/22 15:03 80 18 119/81 09/07/22 14:30 80 13 09/07/22 14:30 136/82 09/07/22 14:02 90 20 09/07/22 14:01 132/94 09/07/22 13:56 94 H 09/07/22 13:30 82 15 09/07/22 13:30 136/99 09/07/22 13:00 86 20 09/07/22 13:00 133/89 09/07/22 12:30 87 15 09/07/22 12:30 130/84 09/07/22 12:00 87 17 09/07/22 12:00 140/82 09/07/22 11:30 85 18 113/79 Pulse Ox O2 Del Method O2 Del Method 09/08/22 11:00 97 Room Air 09/08/22 09:25 96 Room Air 09/08/22 03:00 97 Room Air 09/07/22 23:32 09/07/22 23:00 97 Room Air 09/07/22 20:00 98 Room Air 09/07/22 15:57 98 09/07/22 15:50 09/07/22 15:50 98 09/07/22 15:45 09/07/22 15:35 09/07/22 15:30 09/07/22 15:30 09/07/22 15:49 09/07/22 15:03 Room Air 09/07/22 15:03 98 Room Air 09/07/22 14:30 95 Room Air 09/07/22 14:30 09/07/22 14:02 97 Room Air 09/07/22 14:01 09/07/22 13:56 97 Room Air 09/07/22 13:30 96 Room Air 09/07/22 13:30 09/07/22 13:00 95 09/07/22 13:00 09/07/22 12:30 97 Room Air 09/07/22 12:30 09/07/22 12:00 97 Room Air 09/07/22 12:00 09/07/22 11:30 96 Room Air Recovery Score Activity: Moves 4 extremities Respiration: Deep Breath/Cough Circulation: +/-20% PreAnes Value Consciousness: Fully Awake Oxygen Saturation: > 92% On Room Air Post Anesthesia Score: 10 Discharge Sedation Level of Care: Fast Track Phase II Post Sedation Plan On clinical assessment, the patient appears to have tolerated the sedation without complications. Patient is recovering as anticipated. Patient will continue to be monitored by nursing and may be discharged when sedation discharge criteria are met per below protocol. Upon Completions of procedure up to 15 minutes continue every 5 minute vital signs and the P.A.R. score; then discharge to a Phase I or Fast Track to Phase II per the following guidelines: * Discharge Patient to appropriate Phase II area if PAR is 8 or greater or return to pre- procedure baseline. The post - procedure orders will be as directed. * If PAR score is less than 8 or not return to pre-procedure baseline then patient will follow Phase I monitoring till PAR is reached for Phase II. The Phase I may be done in procedure room or may call to secure a Phase I area. * If naloxone or flumazenil are used for reversal, hold in Phase I for continued monitoring from when last reversal dose was given for a minimum of 60 minutes or longer pending the nurse and/or physician discretion of patient condition before discharge to Phase II. Please call the Sedation Physician to re-evaluate and complete post-note for discharge to Phase II area. Do NOT discharge from procedure sedation or Phase 1 until post- sedation evaluation note is complete by procedure /sedation MD Sedation Discharge Instructions to be given to the patient at discharge to home.
[2022-09-08] MEDS ORDERED: PANTOprazole 40 MG TAB PO SCH (11:15)
--- NOTE | 2022-09-08 11:18 | Cardiac Catheterization ---
[facility] Data: Case Technician Cardiac Status Clinical evaluation leading to the procedure CAD Presenation: Non STEMI Anginal Classification: CCS IV Diagnostic Physicians Name: Aman Hardwick MD Closure Device Recommendations: PCI without planned CABG Cardiac Cath Procedure Full Procedure Date September 08, 2022 Pre-Procedure Diagnosis Pre-Procedure Diagnosis: Non STEMI AUC Score AUC Score: 8 Post-Procedure Diagnosis Post-Procedure Diagnosis: Severe CAD, Successful PCI and Normal Intracardiac Pressures Procedure(s) Performed Procedure(s) Performed: Coronary Angiography, Left Heart Cath and Drug Eluting Stent Belt Maker Helper Aman Hardwick MD Tactical/Mobile Watch Officer(s) Hardboard Panel Printer Estimated Blood Loss Estimated Blood Loss: 10 Medication(s) Medication(s): Clopidogrel, Fentanyl, Heparin, Lidocaine 1%, Nicardipine, Nitroglycerin and Versed Summary of Findings Indication: NSTEMI Access: 6Fr right radial artery Catheters: [place], EBU 3.5 guide Findings: LM -normal caliber, no significant disease LAD -medium caliber, calcified proximally with luminal regularities, 70% hazy distal stenosis. Remainder of LAD without significant disease and wraps around apex. Circumflex -medium caliber, 50% distal stenosis. High OM1 40% ostial stenosis and travels and typical diagonal distribution. High OM 2 small with 70% ostial stenosis. RCA - Dominant, large caliber, calcified proximally, 30-40% early-mid stenosis, distal luminal irregularities. RPDA and large RPLB without significant disease. LVEDP -16 -- PCI -- Antithrombotic therapy: Heparin, clopidogrel Procedure: Left main cannulated with EBU 3.5 guide Pre-procedure flow VALERIA 3 BMW wire passed across lesion into distal vessel Distal LAD lesion predilated with 2.0 compliant balloon Dilated lesion stented with 2.25 x 18 mm Kaden drug-eluting stent Stent post-dilated with 2.5 noncompliant balloon IC vasodilators administered for spasm Post procedure VALERIA 3 flow, stent well expanded with minimal residual stenosis and no apparent cardiac complications. Arterial Closure: TR band Summary: 1. Multi vessel coronary artery disease -70% hazy distal LAD stenosis 50% distal circumflex. Small OM 2 with 70% ostial stenosis 30-40% earlymid RCA 2. Normal intracardiac filling pressure 3. Successful PCI of distal LAD with single drug-eluting stent (2.25 x 18 mm Kaden; postdilated with 2.5 NC). Recommendations: To PCU for continued monitoring Loaded with clopidogrel 600 mg in Case Technician Continue dual-antiplatelet therapy for at least 1 year Continue statin, and ASCVD risk factor modification Consult cardiac Rehab Hemodynamics Rest Ao:: 135/83/125 Final Ao: 100/61/79 LV: 171/60 Recommendations Recommendations: PCI without planned CABG Specimens Specimens: None Radiation Exposure (mGy) 1507 Contrast (mls) 80 Anesthesia Moderate 5969-3036 Procedural Complication(s) None Disposition PCU I attest to the content of the Intraoperative Record and any orders documented therein. Any exceptions are noted below. [facility] Card Cath Procedure Codes Cardiac Catheterization Procedure 1: Cardiovascular Cath Procedures: 16667 Coronaries and LHC (+/-LV) Moderate Sedation Procedure 1: Sedation/Anesthesia: 22763 Mod Sedation by the same physician;Init15 Min Child Age 5 & Up Procedure 2: Sedation/Anesthesia: 13495 Mod Sedation by the same physician; Ea [id number] Minutes Stenting Procedure 1: Cardiovascular Stent Procedures: 11398 Perc transcatheter placement of intracoronary stent(s), with ang PG Care Time/CCT Total # of Minutes Spent Total Time Spent with Patient: Total time spent is greater than 50% in coordination of care (as documented) at patient's floor/unit and/or counseling patient:
[2022-09-08] MEDS: METOPROLOL TARTRATE 25 MG TAB PO SCH ×2 (11:33→20:55)
[2022-09-08] MEDS ORDERED: SODIUM CHLORIDE 0.9% 1000ML 1,000 ML IV ONE (13:11)
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
--- NOTE | 2022-09-08 15:30 | Electrocardiogram Report ---
Test Reason : Blood Pressure : / mmHG Vent. Rate : 073 BPM Atrial Rate : 073 BPM P-R Int : 150 ms QRS Dur : 088 ms QT Int : 428 ms P-R-T Axes : 055 002 036 degrees QTc Int : 471 ms Normal sinus rhythm Normal ECG When compared with ECG of 07-SEP-2022 08:35, ST no longer depressed in Inferior leads Confirmed by Amish Worrell ([id number]) on 09/08/2022 3:30:12 PM Referred By: REFERRED SELF Confirmed By:Amish Worrell
--- NOTE | 2022-09-08 16:06 | Electrocardiogram Report ---
Test Reason : Blood Pressure : / mmHG Vent. Rate : 073 BPM Atrial Rate : 073 BPM P-R Int : 154 ms QRS Dur : 082 ms QT Int : 418 ms P-R-T Axes : 052 -05 031 degrees QTc Int : 460 ms Normal sinus rhythm Normal ECG When compared with ECG of 08-SEP-2022 03:25, (unconfirmed) No significant change was found Confirmed by Amish Worrell ([id number]) on 09/08/2022 4:06:08 PM Referred By: REFERRED SELF Confirmed By:Amish Worrell
[2022-09-08] MEDS ORDERED: FAMOTIDINE 10 MG TABLET PO ONE (20:00)
[2022-09-08] MEDS ORDERED: FAMOTIDINE 10 MG TABLET PO SCH (21:00)
[2022-09-09 07:11] LABS: Hematocrit (blood only) 41.6 % (37.0-47.0); Hemoglobin 14.2 g/dl (12.0-16.0); Mean Corpuscular Hemoglobin 29.8 pg (25.0-34.0); Mean Corpuscular Hgb Conc 34.1 g/dL (32.0-36.0); Mean Corpuscular Volume 87.2 fL (80.0-100.0); Mean Platelet Volume 9.6 fL (9.4-12.4); Platelet Count 282 K/uL (130-400); RDW Coefficient of Variation 12.9 % (11.5-14.5); RDW Standard Deviation 40.8 fL (36.4-46.3); Red Blood Count 4.77 M/uL (4.20-5.40); White Blood Count 5.46 K/ul (4.8-10.8)
[2022-09-09 07:31] LABS: BUN Creatinine Ratio 16.3 (10-20); Calcium 9.5 mg/dl (8.5-10.1); Chol HDL Ratio 5.3 (0-5); Creatinine Clr Calc Pharmacy 62.5 ml/min; Est GFR (African American) 71.2 ml/min; Est GFR (Non-African American) 61.4 ml/min; Potassium 3.8 mmol/L (3.5-5.1)
--- NOTE | 2022-09-09 07:56 | Cardiology Progress Note ---
Date of Service September 09, 2022 Assessment & Plan (1) NSTEMI (non-ST elevated myocardial infarction): (2) HTN (hypertension): (3) PVCs (premature ventricular contractions): Plan 62-year-old female presenting to the emergency department via EMS today due to an episode of near syncope while driving. Symptoms were accompanied by palpitations, dyspepsia, and numbness and tingling in her upper extremities. Initial twelve-lead EKG performed at 0807 by the paramedics revealed sinus tachycardia at 120 bpm with [address] segment depression noted in the inferior leads, most pronounced in lead II, I, and to a lesser degree in the lateral precordial leads. This was less prominent on a repeat tracing performed 10 minutes later 8:17 AM. By the time she arrived and had a standard twelve- lead EKG performed in the emergency department only mild nonspecific repolarization changes were noted. Telemetry showing sinus rhythm/sinus tach with PVCs. Patient had significant improvement in symptoms since receiving Lopressor. -EKG (09/08) showing NSR in the 70s. Inferior ST depression resolved. -Patient symptomatic with PVCs. Responded well to IV Lopressor. High-sensitivity troponin elevated at 25.5>>64.2 >> 37.2 >> 21.5 Echo: normal biventricular function and wall motion, LVEF approximately 60 to 65%. Trace MR. Multivessel CAD per cardiac cath 09/08, s/p PCI to LAD- nonobstructive disease elsewhere. Tele stable over night. History of hypertension. Blood pressures controlled. -Continue home blood pressure medicines of losartan and amlodipine. Discharge recommendations: 1. Continue DAPT with ASA 81 mg daily and Plavix 75 mg daily without interrupt ion x minimum of 1 year. 2. Transition metoprolol tartrate 12.5 mg twice daily to metoprolol succinate 25 mg daily for cardiovascular benefits. 3. Continue home dose of Norvasc and Losartan as ordered. 4. Lipid panel very uncontrolled. LDL 168- given family history this is possibly genetic. Can consider genetic testing as an outpatient. 5. Will plan for outpatient cardiology follow up in 1 month- our team will arrange this. 6. No heavy lifting/pushing pulling with right arm- no driving x3 days following cardiac cath. Case discussed with Dr. Jeffrey Jay for discharge from a cardiology standpoint. Admission and Anticipated Discharge Date Admission Date: September 08, 2022 Supervising Physician Co-Signing Physician Notes Cardiology attending: I personally performed a history and physical exam. Agree with findings and plan as outlined by AIMEE Armas with additions as noted below. Subjective: Patient reassessed by the undersigned at 3:40 PM. Her is at the bedside. She had recently had a brief episode of discomfort between her shoulder blades and a twinge of tingling in her right chest. The symptoms were different than her anginal symptoms that prompted her hospital stay and stent. They have since resolved. EKG performed today in follow-up of the above symptoms at 1419 revealed normal sinus rhythm, normal ST segments. Exam: Right wrist with no ecchymosis Impression / Plan: Stable for discharge with medications as noted above. Taiwo Hendrix DO Subjective 62-year-old female who presented with chest discomfort and presyncope. Di agnosed with NSTEMI. 09/08: Status post cardiac catheterization (via right radial artery) revealing multivessel CAD with a 70% hazy distal LAD, 50% distal circumflex, small OM 2 with 70% ostial stenosis, and 30 to 40% early/mid RCA stenosis. Status post PCI to the distal LAD with single drug-eluting stent (2.25 x 18 mm [place]; postdilated with 2.5 NC). Started on dual antiplatelet therapy with aspirin and Plavix, will continue for 1 year uninterrupted. Pepcid for GI prophylaxis. Patient notes that PPIs have caused her adverse reactions in the past Atorvastatin started and increased. Metoprolol previously added due to PVCs 09/09: Patient seen and examined at bedside. Chart and telemetry reviewed. Tele: NSR 70-80s with occasional PVCs No acute concerns over night- eager for discharge. EKG stable without concerning ST/T wave changes. No further concerns of chest pain/heart burn or presyncope. Review of Systems Review of Systems: All systems reviewed & are unremarkable except as noted in HPI & below Physical Exam Constitutional: WD/WN, vitals as above no acute distress Eyes: PERRL, conjunctivae normal, anicteric sclerae Neck: normal visual inspection and trachea midline Respiratory: normal respiratory effort, lungs clear to auscultation Cardiovascular: RRR, no murmur, no edema Heart Sounds: normal S1 and normal S2 Vessels: no JVD Extremities: no edema Right radial cath site clean dry and intact- no signs of infection or hematoma. Bruising noted above the cath access site. Gastrointestinal (Abdomen): normal bowel sounds, soft, nontender, no hepatosplenomegaly Musculoskeletal: no cyanosis or clubbing, extremities motor strength 5/5 Skin: no rashes, warm and dry Psychiatric: A+Ox3, euthymic affect Results & Data ([facility]) Vital Signs (Past 12 Hours) Vital Signs Temp Pulse Pulse Resp BP Pulse Ox O2 Del Method 09/09/22 02:48 36.4 C L 74 17 119/77 97 Room Air 09/08/22 22:06 66 09/08/22 22:59 36.6 C 61 15 117/76 97 Room Air 09/08/22 20:49 36.4 C L 72 18 130/84 96 Room Air Laboratory Results Lipids 09/09/22 Range/Units 06:02 Triglycerides 170 H (0-150) mg/dl Cholesterol 249 H (0-200) mg/dl HDL Cholesterol 47 mg/dl Cholesterol/HDL Ratio 5.3 H (0-5) LDL 168 (H) CBC 09/09/22 Range/Units 06:02 WBC 5.46 (4.8-10.8) K/ul RBC 4.77 (4.20-5.40) M/uL Hgb 14.2 (12.0-16.0) g/dl Hct 41.6 (37.0-47.0) % Plt Count 282 (130-400) K/uL Comprehensive Metabolic Panel 09/09/22 Range/Units 06:02 Sodium 140 (136-145) mmol/L Potassium 3.8 (3.5-5.1) mmol/L Chloride 107 (98-107) mmol/L Carbon Dioxide 26 (21-32) mmol/L BUN 16 (6-23) mg/dl Creatinine 0.98 (0.6-1.2) mg/dl Glucose 85 (70-99(Fasting)) mg/dl Calcium 9.5 (8.5-10.1) mg/dl Intake and Output 09/08/22 09/09/22 09/09/22 22:59 06:59 14:59 Intake Total 240 / 1343.50 1000 / 1343.50 Output Total 225 / 675 Balance 8.50 1000 / 668.50 Intake: IV 1000 / 1103.50 Sodium Chloride 0.9% 1000ML 1, 1000 / 1000 000 ml @ 80 mls/hr IV .[id number] ONE Rx#:[id number] Oral 240 / 240 Output: Urine 225 / 675 # Bowel Movements 0 / 0 Other: # Unmeasured Voids 2 2 Weight 79.6 kg Weight Measurement Method Built in [facility]
[2022-09-09] MEDS: ASPIRIN 81 MG ECTAB PO SCH (08:40)
[2022-09-09] MEDS: amLODIPine BESYLATE 5 MG TAB PO SCH (08:40)
[2022-09-09] MEDS: LEVOTHYROXINE SODIUM 25 MCG TABLET PO SCH (08:43)
[2022-09-09] MEDS ORDERED: METOPROLOL SUCC 25MG EXT REL TAB PO SCH (09:00)
[2022-09-09] MEDS ORDERED: CLOPIDOGREL BISULFATE 75 MG TAB PO SCH (09:00)
[2022-09-09] MEDS ORDERED: LANSOPRAZOLE 15 MG SOLTAB PO SCH (09:00)
--- NOTE | 2022-09-09 15:32 | Electrocardiogram Report ---
Test Reason : Blood Pressure : / mmHG Vent. Rate : 063 BPM Atrial Rate : 063 BPM P-R Int : 150 ms QRS Dur : 084 ms QT Int : 428 ms P-R-T Axes : 058 -02 039 degrees QTc Int : 437 ms Normal sinus rhythm Normal ECG When compared with ECG of 08-SEP-2022 11:16, No significant change was found Confirmed by Amish Worrell ([id number]) on 09/09/2022 3:32:31 PM Referred By: REFERRED SELF Confirmed By:Amish Worrell
--- NOTE | 2022-09-09 15:42 | Electrocardiogram Report ---
Test Reason : Blood Pressure : / mmHG Vent. Rate : 065 BPM Atrial Rate : 065 BPM P-R Int : 150 ms QRS Dur : 092 ms QT Int : 416 ms P-R-T Axes : 043 -17 035 degrees QTc Int : 432 ms Normal sinus rhythm Normal ECG When compared with ECG of 09-SEP-2022 05:20, (unconfirmed) No significant change was found Confirmed by Amish Worrell ([id number]) on 09/09/2022 3:41:48 PM Referred By: REFERRED SELF Confirmed By:Amish Worrell
--- NOTE | 2022-09-09 17:51 | Discharge Summary ---
Date of Service September 09, 2022 Admission HPI Per Admitting Provider 62 year old female with PMH HTN, GERD, PUD, hypothyroidism, renal calculi, and other problems listed below who presents to the ED for evaluation of near syncope. Patient reports that while driving this morning she had onset of indigestion and lightheadedness. Patient reports she pulled over and took a dose of Maalox. She reports that she then continued down the road for about 1 mile when symptoms returned. Patient reports she felt as though she was going to pass out. She was able to call 911. Patient reports associated nausea and palpitations. Patient denies diaphoresis and chest pain. Patient does report she gets episodes of indigestion with associated lightheadedness almost daily however today's episode was much different. Patient reports undergoing stress testing about 10 years ago. Patient is unsure of the indication. Patient states that test was stopped due to elevated BP however patient denies any additional work-up. Patient reports he otherwise has been feeling well recently. No other recent illnesses, fevers, chills. She denies vomiting, abdominal pain, diarrhea. No urinary symptoms. Prehospital EKG showed sinus tachycardia with ST depressions in leads II aVF, V3-V5. Upon arrival to the ED, patient was tachycardic in the 110's. Labs show K+ 3.1, HS troponin 25.5. EKG is similar to prehospital however ST depressions less pronounced. Patient was given full dose aspirin, metoprolol 5 mg IV, 0.5in Nitropaste, IV Zofran, potassium replacement, IVF. Principal Diagnosis Multivessel CAD Unstable Angina Discharge Exam Patient is pleasant, comfortable, no acute distress. Reports having discomfort in between her shoulder blade and chest tingling earlier today which felt d ifferent that the symptoms that brought her to the hospital. EKG was repeated and reviewed by Cardiology Breathing comfortably on room air Discharge Data Allergies Allergy/AdvReac Type Severity Reaction Status Date / Time codeine Allergy Unknown "muscle Verified 04/12/19 11:58 pain" morphine Allergy Unknown "muscle Verified 04/12/19 11:58 pain" Sulfa (Sulfonamide Allergy Unknown HIVES Verified 04/12/19 11:58 Antibiotics) hydrocodone Allergy itchy Verified 04/12/19 11:58 throat & skin pantoprazole [From Protonix] AdvReac Mild Agitated Verified 09/08/22 09:56 gluten AdvReac Gastrointestinal Verified 09/07/22 12:37 Upset hydrochlorothiazide AdvReac Confusion Verified 09/07/22 12:36 Consultations 09/07/22 11:55 ED Decision to Admit Stat 09/07/22 12:18 Consult Cardiology Routine 09/09/22 07:42 Consult Cardiac Rehabilitation Routine Procedures Performed Operation Date: 09/08/22 09:30 Actual Procedures p Cineradiography w/Routine Exam - Misael Hardwick MD p Cath, Left with Cors and Vent - Misael Hardwick MD p Drug Eluting Stent SGl Vessel - Misael Hardwick MD Ordered Studies 09/08/22 06:34 CL Cath Imgs for PACS use only Routine Hospital Course (1) NSTEMI (non-ST elevated myocardial infarction): (2) Coronary artery disease: (3) Hyperlipidemia: Plan Ms Gililan Johnson is a 62 year old female with history of dyspepsia/PUD/GERD, HTN and remaining past medical history as listed in H&P presented to the ER 09/07 with indigestion and light headedness. On presentation she was noted to have ST depressions in her inferior lateral leads on EKG which later resolved. High sensitivity Troponin was elevated. She was started on a heparin drip and underwent cardiac catheterization which revealed a 70% distal LAD stenosis and remaining coronaries with non obstructive disease. She was placed on aspirin and plavix and will need to remain on both for at least 1 year. She had lipid panel which revealed LDL to be 168 and Triglyceride 170. She was also started on atorvastatin 40mg daily. Her remaining medications were optimized and she was discharged home in stable condition. She will need follow up with Cardiology in 1 month. Total Time Total Time Spent Total Time Spent (In Minutes): 45 Discharge Plan Discharge Items Patient Disposition: Home - Self-Care Reason For Visit: Angina Discharge Diagnosis: Multivessel coronary artery disease Unstable Angina NSTEMI Condition on Discharge: Good Activity: As commented below Weightbearing: Full weightbearing Non-emergency contact: Primary Care Provider and Aerial Survey Technician Call non-emergency contact if: you have any medication questions and your symptoms worsen Follow-up/Referrals: Cleopatra Luu MD [Primary Care Provider] - (Dr Luu' office will call you with a hospital follow up appointment. They are aware of your discharge from the hospital.) Page Means CRNP [Nurse Practitioner] - (Date & Time 10/05/2022 11:30 AM Provider AIMEE Ying Department Cardiology, [facility] ) Diet: Heart Healthy Viktoria Attending Provider Instructions: Please follow up with Cardiology Please return to ER if you have chest pain or shortness of breath Agustinatl Mule Tender Provider Instructions: No heavy lifting/pushing pulling with right arm- no driving for 3 days following discharge Pending Studies at Discharge: No Stand-Alone Forms: My [facility] [employer] Smoking Cessation Medications and DC Order Prescriptions: New clopidogrel 75 mg Tablet 75 mg PO QAM 90 Days Qty: 90 0RF aspirin 81 mg Tablet,Delayed Release (Dr/Ec) 81 mg PO DAILY 90 Days Qty: 90 0RF metoprolol succinate 25 mg Tablet Extended Release 24 Hr 25 mg PO QAM 90 Days Qty: 90 0RF lansoprazole [Prevacid SoluTab] 15 mg Tablet,Disintegrat, Delay Rel 15 mg PO QAM 14 Days Qty: 14 0RF atorvastatin 40 mg tablet 40 mg PO DAILY Qty: 30 1RF nitroglycerin [Nitrostat] 0.3 mg tablet, sublingual 0.3 mg sublingual Q5M Qty: 20 0RF Rx Instructions: As needed for chest pain. Max 3 doses within 15 minutes Continued amlodipine 5 mg tablet 5 mg PO DAILY levothyroxine [Synthroid] 25 mcg tablet 25 mcg PO DAILY losartan 25 mg tablet 25 mg PO DAILY famotidine [Acid Practical Nursing Teacher (famotidine)] 10 mg tablet 10 mg PO HS vitamin B complex [B Complex-Vitamin B12] tablet 1 tab PO DAILY Probiotic 20 billion cell Capsule 20,000 mmu cells PO DAILY Rx Instructions: administer with a meal vitamin D3-vitamin K2 (MK4) 1,000-100 unit-mcg Tablet 2 tab PO DAILY turmeric root extract 500 mg Tablet 500 mg PO DAILY Discharge Orders: Discharge Order (Routine); Ordered 09/09/22 Ordered By: Dirk Beavers/Other Patient Handouts: Heart Attack Angina Sx, Warning Signs of a Heart Attack Admission Data Admit Date/Time: 09/08/22 16:25 Attending Provider: Dirk Ramirez Admit Provider: Nella Garcia Primary Care Provider: Cleopatra Luu Other Providers: Taiwo Hendrix ; Dirk Ramirez Other Interventions: Discharge Summary Assessment (RN) Last Done: 09/09/22 16:33
== END 2022-09-09 18:20 | disposition home or self-care (01) | DRG 247 ==
LOC: ED 08:21 → EDINP 08:21 → SUATTDRO 11:36 → 1E 14:34 → 4W 09-08 18:04